=== PATIENT | female | born 1965 | race Two or more races ===

== ENCOUNTER 2024-12-14 16:28 | Inpatient (IN) | payer MEDICAID, OTHER ==
[~2024-12-14] VITALS: Ht 154.9 cm; Wt 96.8 kg
--- NOTE | 2024-12-14 16:51 | ED.PDOC ---
GI ASSESSMENT HPI Comments 59-year-old female with a history of diverticular disease, diabetes, RA, thyroid disease and depression brought in by private car complaining of right lower quadrant abdominal pain for the past 2 days, similar to previous episodes of diverticulitis. Patient also reports fever of 102 at home, associated with nausea and vomiting. She states she had diarrhea 2 days ago, and has been constipated since then. She denies any bloody or black stool, dysuria or sick contacts. Chief Complaint: Abdominal Pain Time Seen by MD: 16:36 Reviewed Notes: Nurses Notes, Medications, Allergies Allergies: Coded Allergies: Acetaminophen (Verified Allergy, Unknown, 12/14/24) Codeine (Verified Allergy, Unknown, 12/14/24) Hydrocodone (Verified Allergy, Unknown, 12/14/24) Information Source: Patient Mode of Arrival: Ambulatory Past Medical History PAST MEDICAL HISTORY: Arthritis (rheumatoid ), Depression, DM, Thyroid Past Medical History (Other): Diverticulitis Surgical History: Cholecystectomy, Hysterectomy (partial ) Surgical History (Other): bilateral ankle anastasiia surgery TOW PICKER History: Denies all TOW PICKER Hx Social History Smoker: Non-Smoker Alcohol: Denies ETOH Use Drugs: Denies Drug Use Lives In: Home All Other Systems: Reviewed and Negative (Comprehensive review of systems are negative unless otherwise stated in HPI) Physical Exam General Appearance: No Apparent Distress, Obese HEENT: Other (Pupils and face symmetric. Moist mucous membranes.) Neck: Full Range of Motion, Normal Inspection Respiratory: Lungs Clear, No Accessory Muscle Use, No Respiratory Distress, Normal Breath Sounds Cardiovascular: No Edema, No JVD, Regular Rate/Rhythm Breast Exam: Deferred Gastrointestinal: RLQ, Soft, Tenderness Genitalia: Deferred Pelvic: Deferred Rectal: Deferred Extremities: Normal inspection, Normal range of motion, Non-tender, No pedal edema Neurologic: Alert (Oriented x4), Normal Affect, Normal Mood, Other (Ambulatory) Cerebellar Function: NOT DONE Reflexes: NOT DONE Skin: Dry, Normal Color, Warm Lymphatic: NOT DONE Was a procedure done? Was a procedure done?: No GI differential Dx Differential Diagnosis: Appendicitis, Diverticular disease, Gastroenteritis, Inflammatory BD, Ischemic Bowel, Ovarian cyst/torsion, UTI, Electrolyte Imbalance, Food Poisoning, Bacterial, Viral, Hypovolemia, Stress Ulcer, Kidney Stone X-Ray, Labs, Meds, VS Vital Signs Date Time Temp Pulse Resp B/P (MAP) Pulse Ox O2 Delivery O2 Flow Rate FiO2 12/14/24 18:47 73 15 111/62 12/14/24 18:24 98.0 101 18 139/74 (95) 95 98.0 12/14/24 18:17 101 18 139/74 12/14/24 16:29 100.1 96 16 120/67 99 100.1 Lab Test 12/14/24 17:35 12/14/24 17:07 Range/Units White Blood Count 12.3 H 4.4-10.8 10^3/uL Red Blood Count 5.00 4.0-5.20 10^6/uL Hemoglobin 16.0 12.2-16.2 g/dL Hematocrit 45.8 36.0-46.0 % Mean Corpuscular Volume 91.6 80.0-100.0 fL Mean Corpuscular Hemoglobin 32.0 28.0-32.0 pg Mean Corpuscular Hemoglobin Concent 35.0 32.0-36.0 g/dL Red Cell Distribution Width 14.1 11.8-14.3 % Platelet Count 201 140-450 10^3/uL Mean Platelet Volume 8.3 6.9-10.8 fL Neutrophils (%) (Auto) 81.2 H 37.0-80.0 % Lymphocytes (%) (Auto) 12.0 10.0-50.0 % Monocytes (%) (Auto) 6.0 0.0-12.0 % Eosinophils (%) (Auto) 0.1 0.0-7.0 % Basophils (%) (Auto) 0.7 0.0-2.0 % Neutrophils # (Auto) 10.0 H 1.6-8.6 10 ^3/uL Lymphocytes # (Auto) 1.5 0.4-5.4 10 ^3/uL Monocytes # (Auto) 0.7 0-1.3 10 ^3/uL Eosinophils # (Auto) 0 0-0.8 10 ^3/uL Basophils # (Auto) 0.1 0-0.2 10 ^3/uL Nucleated Red Blood Cells 0.0 % Sodium Level 138 136-145 mmol/L Potassium Level 3.8 3.5-5.1 mmol/L Chloride Level 103 98-107 mmol/L Carbon Dioxide Level 25 20-31 mmol/L Anion Gap 10 5-15 Blood Urea Nitrogen 9 9-23 mg/dL Creatinine 0.62 0.550-1.02 mg/dL Glomerular Filtration Rate Calc 103 >90 mL/min BUN/Creatinine Ratio 14.5 10.0-20.0 Serum Glucose 133 H 74-106 mg/dL Lactic Acid Level 1.5 0.4-2.0 mmol/L Calcium Level 10.1 8.7-10.4 mg/dL Total Bilirubin 2.1 H 0.2-1.0 mg/dL Aspartate Amino Transferase (AST) 66 H 13-40 U/L Alanine Aminotransferase (ALT) 77 H 7-40 U/L Alkaline Phosphatase 116 46-116 U/L Total Protein 7.7 5.7-8.2 g/dL Albumin 5.1 H 3.2-4.8 g/dL Urine Color Yellow Yellow Urine Clarity Turbid H Clear Urine pH 6.0 5.0-9.0 Urine Specific [place] 1.035 1.001-1.035 Urine Protein 1+ H Negative Urine Ketones Trace Negative Urine Blood 1+ H Negative /uL Urine Nitrite Negative Negative Urine Bilirubin Negative Negative Urine Urobilinogen Normal Negative mg/dL Urine Leukocyte Esterase Negative Negative /uL Urine RBC 4 0 - 4 /hpf Urine Microscopic WBC 2 0-5 /HPF Urine Squamous Epithelial Cells Few <5 /hpf Urine Amorphous Crystals Few None Seen /hpf Urine Bacteria Few H None Seen /hpf Urine Mucus Few None Seen Urine Glucose Normal Normal mg/dL Current Medications Medications (Trade) Dose Ordered Sig/Addison Route Start Time Stop Time Status Last Admin Sodium Chloride 1,000 ml @ 1,000 mls/hr Q1H ONCE IV 12/14/24 17:00 12/14/24 17:59 DC 12/14/24 18:18 Ondansetron HCl (Zofran) 4 mg ONCE ONCE IV 12/14/24 17:00 12/14/24 17:59 DC 12/14/24 18:17 Morphine Sulfate 4 mg ONCE ONCE IV 12/14/24 17:00 12/14/24 18:05 DC 12/14/24 18:17 PROCEDURE(s): ABPL - CT AB PEL WO CON-NO ORAL OR IV REASON: rlq pain ORDER NUMBER(s): [id number], ACCESSION NUMBER(s): [id number] Exam: CT CT AB PEL WO CON-NO ORAL OR IV History: rlq pain Comparison Study: None TECHNIQUE: Multidetector CT of the abdomen was performed from lung bases to p ubic symphysis. Imaging was performed without IV contrast. Axial, coronal and sagittal multiplanar reformats were obtained from the axial data set by the technologist. Radiation Dose Information: CT Dose: CTDI volume is 16.1 mGy. Dose-length product is 856.83 mGy*cm FINDINGS: Evaluation of solid organs is limited due to lack of intravenous contrast use. Findings: Lung Bases: No acute or significant lung base finding. Normal heart size. No pleural or pericardial effusion. Liver: The liver is normal in size. No focal lesions. Gallbladder and Biliary Tree: Unremarkable Spleen: Unremarkable Pancreas: The pancreas is grossly normal in appearance. Adrenal Glands: Unremarkable Kidneys: Kidneys are grossly normal without calculi or hydronephrosis. Bladder: Grossly unremarkable for degree of distention. Bowel: The stomach is grossly normal in appearance. Small bowel and colon are normal in caliber and distribution. The appendix is visualized . Appendix is visualized and measures 6-7 mm with no wall thickening or periappendiceal inflammatory changes. There is no free air or free fluid. Sigmoid diverticulosis with thickened wall and Tawnya sigmoid inflammatory changes. Ascites: Absent Lymphadenopathy: No mesenteric, retroperitoneal or periportal lymphadenopathy. Abdominal Wall and Mesentery: Unremarkable. Vasculature: The visualized abdominal aorta is normal in size and caliber. Evaluation of abdominal and pelvic vessels is limited due to lack of intravenous contrast. Pelvic Organs: Unremarkable Musculoskeletal: No aggressive focal bony lesions, acute fractures or dislocation. Soft tissues: Unremarkable IMPRESSION: 1. Appendix appears normal 2. Sigmoid diverticulitis with no free air or free fluid. Findings may represent non complicated diverticulitis. 3. Radiation optimization: All CT scans at this facility use at least one of these dose optimization techniques: automated exposure control mA and/or kV adjustment per patient size (includes targeted exams where dose is matched to clinical indication) or iterative reconstruction. HS:Y X-Ray, Labs, Meds, VS Comment 59-year-old female with a history of diverticular disease, diabetes, RA, thyroid disease and depression brought in by private car complaining of right lower quadrant abdominal pain for the past 2 days, similar to previous episodes of diverticulitis. Vitals remarkable for temperature of 100.1 Exam remarkable for right lower quadrant tenderness to palpation. No rebound or guarding. Nontender to percussion. Rhythm strip independently interpreted by me: Sinus rhythm, rate 96, no ectopy CT abdomen and pelvis IMPRESSION: 1. Appendix appears normal 2. Sigmoid diverticulitis with no free air or free fluid. Findings may represent non complicated diverticulitis. CBC remarkable for WBC 12.3, comprehensive metabolic panel unremarkable, UA abnormal consistent with a UTI, lactate normal Patient treated with the following in the ED: 1 L 0.9 normal saline IV bolus, Zofran 4 mg IV, morphine 4 mg IV, Zosyn 4.5 g IV On re-evaluation, pain has improved. Vitals were stable. Plan is to admit the patient for IV antibiotics and pain control. Time of 1ST Reevaluation: 17:06 Reevaluation 1ST: Unchanged Patient Education/Counseling: Diagnosis, Treatment, Need For Follow Up Family Education/Counseling: No Family Present SEPSIS Sepsis Screen Date sepsis recognized/suspect: Dec 14, 2024 Time Sepsis recognized/suspect: 1628 Recent Procedure: No On Antibiotic Therapy: No Respiratory Rate >20: No Heart Rate >90: Yes Temp<36 C (96.8 F) or >38.3 C: No SBP <90 or MAP <65 mmHG: No New Acute Mental Status Change: No Is the patient on CPAP, BIPAP,: No SEPSIS EXCLUSION NOTE: Sepsis Exclusion Note: Patient presents with SIRS criteria, but the SIRS response is attributed to [ pain], not sepsis. Sepsis bundle is not initiated at this time, due to this reason. Further management will focus on the treatment of the above condition (s). Physician Orders Ct Ab Pel Wo Con-No Oral Or Iv (12/14/24 16:56) Blood Culture (12/14/24 16:56) Piperacillin-Tazo 4.5gm (Zosyn 4.5gm/100 (12/14/24 19:15) Vital Signs Date Time Temp Pulse Resp B/P (MAP) Pulse Ox O2 Delivery O2 Flow Rate FiO2 12/14/24 18:47 73 15 111/62 12/14/24 18:24 98.0 101 18 139/74 (95) 95 98.0 12/14/24 18:17 101 18 139/74 12/14/24 16:29 100.1 96 16 120/67 99 100.1 Laboratory Tests Test 12/14/24 17:35 Lactic Acid Level 1.5 mmol/L (0.4-2.0) White Blood Count 12.3 10^3/uL (4.4-10.8) H Medications Medications Dose Ordered Sig/Addison Route Start Time Stop Time Status Last Admin Dose Admin Morphine Sulfate 4 mg ONCE ONCE IV 12/14/24 17:00 12/14/24 18:05 DC 12/14/24 18:17 Ondansetron HCl 4 mg ONCE ONCE IV 12/14/24 17:00 12/14/24 17:59 DC 12/14/24 18:17 Sodium Chloride 1,000 ml @ 1,000 mls/hr Q1H ONCE IV 12/14/24 17:00 12/14/24 17:59 DC 12/14/24 18:18 Departure 1 Departure Time of Disposition: 19:00 Impression: Primary Impression: Diverticulitis Additional Impression: UTI (urinary tract infection) Disposition: ADMITTED INPATIENT Admit to: Med Surg Condition: Guarded Critical Care Note Critical Care Time?: No Stability Stability form required: No Heart Score Heart Score: Heart Score Response (Comments) Value History N/A 0 EKG N/A 0 Age N/A 0 Risk Factors N/A 0 Troponin N/A 0 Total 0 I personally scribed for ELENO TENORIO MD ([email or web address]) on 12/14/24 at 17:01. Electronically submitted by Dave Alvarenga ([email or web address]). ELENO TENORIO MD Dec 14, 2024 16:51
[2024-12-14 17:39] LABS: Urine Amorphous Crystal FEW /hpf (None Seen); Urine Protein, UAD 1+ (Negative)
[2024-12-14 17:48] LABS: Hematocrit 45.8 % (36.0-46.0); Hemoglobin 16.0 g/dL (12.2-16.2); Mean Corpuscular Hemoglobin 32.0 pg (28.0-32.0); Mean Corpuscular Volume 91.6 fL (80.0-100.0); Nucleated Red Blood Cells % 0.0 %
[2024-12-14 18:00] LABS: Anion Gap 10 (5-15); BUN/Creatinine Ratio 14.5 (10.0-20.0); Calcium 10.1 mg/dL (8.7-10.4); Carbon Dioxide 25 mmol/L (20-31); Chloride 103 mmol/L (98-107); Potassium 3.8 mmol/L (3.5-5.1); Sodium 138 mmol/L (136-145); Total Protein 7.7 g/dL (5.7-8.2)
--- NOTE | 2024-12-14 18:03 | DVH ---
Exam: CT CT AB PEL WO CON-NO ORAL OR IV History: rlq pain Comparison Study: None TECHNIQUE: Multidetector CT of the abdomen was performed from lung bases to pubic symphysis. Imaging was performed without IV contrast. Axial, coronal and sagittal multiplanar reformats were obtained fr om the axial data set by the technologist. Radiation Dose Information: CT Dose: CTDI volume is 16.1 mGy. Dose-length product is 856.83 mGy*cm FINDINGS: Evaluation of solid organs is limited due to lack of intravenous contrast use. Findings: Lung Bases: No acute or significant lung base finding. Normal heart size. No pleural or pericardial effusion. Liver: The liver is normal in size. No focal lesions. Gallbladder and Biliary Tree: Unremarkable Spleen: Unremarkable Pancreas: The pancreas is grossly normal in appearance. Adrenal Glands: Unremarkable Kidneys: Kidneys are grossly normal without calculi or hydronephrosis. Bladder: Grossly unremarkable for degree of distention. Bowel: The stomach is grossly normal in appearance. Small bowel and colon are normal in caliber and d istribution. The appendix is visualized . Appendix is visualized and measures 6-7 mm with no wall t hickening or periappendiceal inflammatory changes. There is no free air or free fluid. Sigmoid dive rticulosis with thickened wall and Tawnya sigmoid inflammatory changes. Ascites: Absent Lymphadenopathy: No mesenteric, retroperitoneal or periportal lymphadenopathy. Abdominal Wall and Mesentery: Unremarkable. Vasculature: The visualized abdominal aorta is normal in size and caliber. Evaluation of abdominal a nd pelvic vessels is limited due to lack of intravenous contrast. Pelvic Organs: Unremarkable Musculoskeletal: No aggressive focal bony lesions, acute fractures or dislocation. Soft tissues: Unremarkable IMPRESSION: 1. Appendix appears normal 2. Sigmoid diverticulitis with no free air or free fluid. Findings may represent non complicated dive rticulitis. 3. Radiation optimization: All CT scans at this facility use at least one of these dose optimization te chniques: automated exposure control mA and/or kV adjustment per patient size (includes targeted exa ms where dose is matched to clinical indication) or iterative reconstruction. HS:Y
[2024-12-14] MEDS: ONDANSETRON HCL 4 MG/2 ML VIAL IV ONE ×2 (18:17→22:15)
[2024-12-14] MEDS: MORPHINE SULFATE 4 MG/ML SYR/VIAL IV ONE ×2 (18:17→22:15)
[2024-12-14] MEDS: SODIUM CHLORIDE 0.9% 1,000 ML IV ONE ×2 (18:18→23:31)
[2024-12-14 18:30] LABS: Alanine Aminotransferase 77 U/L (7-40); Albumin 5.1 g/dL (3.2-4.8); Alkaline Phosphatase 116 U/L (46-116); Bilirubin, Total 2.1 mg/dL (0.2-1.0); Blood Urea Nitrogen 9 mg/dL (9-23); Glucose 133 mg/dL (74-106)
[2024-12-14] MEDS: PIPERACILLIN-TAZO 4.5GM 100 ML IV ONE (20:08)
[2024-12-14 20:10] VITALS: PULSE 84; RESP 19; O2SAT 96
[2024-12-14 22:45] VITALS: PULSE 96; RESP 15; O2SAT 93
--- NOTE | 2024-12-14 23:03 | DVHHPRES ---
History of Present Illness Resident Creating Document: GENE ORONA RESIDENT History of Present Illness 59-year-old female with history of diverticulitis, diabetes mellitus, rheumatoid arthritis on hydroxychloroquine presents to the ER with bilateral lower quadrant abdominal pain, more on the left side for 2 days. She reports the pain aggravated after eating ramen noodles. She also reports having constipation, not relieved by Colace. She experiences loss of appetite and myalgia as well. She got admitted in the hospital 20 years ago for diverticulitis. She denies an y vomiting or diarrhea, however, she experienced nausea since the episode started. She has never done a colonoscopy. She denies any shortness of breath chest pain, fever, urinary symptoms or any other complaints. Used to take Jardiance for diabetes mellitus, which she stopped due to recurrent UTI use. Currently she is on allogliptin. Past medical history: Diabetes mellitus, rheumatoid arthritis, diverticulitis Past surgical history: Cholecystectomy Allergies: Codeine, opioids causes insomnia and itching Smoke: 3-4 cigarettes per day actively. Eight pack years. Alcohol: Occasionally Leena. Quit vodka. Drugs: Never PCP:Dr. Elizondo Code status full code Review of Systems Gastrointestinal: Nausea, Abdominal Pain, Constipation Allergies: Coded Allergies: Codeine (Verified Allergy, Unknown, 12/14/24) Hydrocodone (Verified Allergy, Unknown, 12/14/24) Exam Vital Signs Vital Signs Date Time Temp Pulse Resp B/P (MAP) Pulse Ox O2 Delivery O2 Flow Rate FiO2 12/14/24 22:15 92 16 128/65 12/14/24 21:10 98.4 94 98.4 12/14/24 20:10 Room Air* 0 21 Exam Pt is lying on bed General Appearance: Alert, Oriented X3, Cooperative, Mild distress HEENT: Atraumatic, Mucous membranes moist/pink Respiratory: Clear to auscultation, Normal air movement, No added sounds Cardiovascular: Regular rate, Normal S1, Normal S2, No murmurs Abdominal/ : Bilateral right and left lower quadrant tenderness present, No signs of peritonitis or perforation, Active bowel sounds, Soft, no distention, no tenderness Extremities: No edema, Normal pulses, No tenderness/swelling Skin: No Significant rash, except past surgical scars Neuro: Normal speech, sensorimotor deficits none Psych/Mental Status: Mental status NL, Mood NL Nurse was there as solar installer technician during examination Labs/Xrays Labs Test 12/14/24 17:35 12/14/24 17:07 Range/Units White Blood Count 12.3 H 4.4-10.8 10^3/uL Red Blood Count 5.00 4.0-5.20 10^6/uL Hemoglobin 16.0 12.2-16.2 g/dL Hematocrit 45.8 36.0-46.0 % Mean Corpuscular Volume 91.6 80.0-100.0 fL Mean Corpuscular Hemoglobin 32.0 28.0-32.0 pg Mean Corpuscular Hemoglobin Concent 35.0 32.0-36.0 g/dL Red Cell Distribution Width 14.1 11.8-14.3 % Platelet Count 201 140-450 10^3/uL Mean Platelet Volume 8.3 6.9-10.8 fL Neutrophils (%) (Auto) 81.2 H 37.0-80.0 % Lymphocytes (%) (Auto) 12.0 10.0-50.0 % Monocytes (%) (Auto) 6.0 0.0-12.0 % Eosinophils (%) (Auto) 0.1 0.0-7.0 % Basophils (%) (Auto) 0.7 0.0-2.0 % Neutrophils # (Auto) 10.0 H 1.6-8.6 10 ^3/uL Lymphocytes # (Auto) 1.5 0.4-5.4 10 ^3/uL Monocytes # (Auto) 0.7 0-1.3 10 ^3/uL Eosinophils # (Auto) 0 0-0.8 10 ^3/uL Basophils # (Auto) 0.1 0-0.2 10 ^3/uL Nucleated Red Blood Cells 0.0 % Sodium Level 138 136-145 mmol/L Potassium Level 3.8 3.5-5.1 mmol/L Chloride Level 103 98-107 mmol/L Carbon Dioxide Level 25 20-31 mmol/L Anion Gap 10 5-15 Blood Urea Nitrogen 9 9-23 mg/dL Creatinine 0.62 0.550-1.02 mg/dL Glomerular Filtration Rate Calc 103 >90 mL/min BUN/Creatinine Ratio 14.5 10.0-20.0 Serum Glucose 133 H 74-106 mg/dL Lactic Acid Level 1.5 0.4-2.0 mmol/L Calcium Level 10.1 8.7-10.4 mg/dL Total Bilirubin 2.1 H 0.2-1.0 mg/dL Aspartate Amino Transferase (AST) 66 H 13-40 U/L Alanine Aminotransferase (ALT) 77 H 7-40 U/L Alkaline Phosphatase 116 46-116 U/L Total Protein 7.7 5.7-8.2 g/dL Albumin 5.1 H 3.2-4.8 g/dL Urine Color Yellow Yellow Urine Clarity Turbid H Clear Urine pH 6.0 5.0-9.0 Urine Specific [place] 1.035 1.001-1.035 Urine Protein 1+ H Negative Urine Ketones Trace Negative Urine Blood 1+ H Negative /uL Urine Nitrite Negative Negative Urine Bilirubin Negative Negative Urine Urobilinogen Normal Negative mg/dL Urine Leukocyte Esterase Negative Negative /uL Urine RBC 4 0 - 4 /hpf Urine Microscopic WBC 2 0-5 /HPF Urine Squamous Epithelial Cells Few <5 /hpf Urine Amorphous Crystals Few None Seen /hpf Urine Bacteria Few H None Seen /hpf Urine Mucus Few None Seen Urine Glucose Normal Normal mg/dL SEPSIS Sepsis Screen Date sepsis recognized/suspect: Dec 14, 2024 Time Sepsis recognized/suspect: 1628 Recent Procedure: No On Antibiotic Therapy: No Respiratory Rate >20: No Heart Rate >90: Yes Temp<36 C (96.8 F) or >38.3 C: No SBP <90 or MAP <65 mmHG: No New Acute Mental Status Change: No Is the patient on CPAP, BIPAP,: No Physician Orders Ct Ab Pel Wo Con-No Oral Or Iv (12/14/24 16:56) Blood Culture (12/14/24 16:56) Vital Signs Date Time Temp Pulse Resp B/P (MAP) Pulse Ox O2 Delivery O2 Flow Rate FiO2 12/14/24 22:15 92 16 128/65 12/14/24 21:10 98.4 92 16 128/65 (86) 94 98.4 12/14/24 20:10 84 19 96 Room Air* 0 21 12/14/24 18:47 73 15 111/62 12/14/24 18:24 98.0 101 18 139/74 (95) 95 98.0 12/14/24 18:17 101 18 139/74 12/14/24 16:29 100.1 96 16 120/67 99 100.1 Laboratory Tests Test 12/14/24 17:35 Lactic Acid Level 1.5 mmol/L (0.4-2.0) White Blood Count 12.3 10^3/uL (4.4-10.8) H Medications Medications Dose Ordered Sig/Addison Route Start Time Stop Time Status Last Admin Dose Admin Morphine Sulfate 4 mg ONCE ONCE IV 12/14/24 17:00 12/14/24 18:05 DC 12/14/24 18:17 4 MG Morphine Sulfate 4 mg ONCE ONCE IV 12/14/24 22:00 12/14/24 22:01 DC 12/14/24 22:15 4 MG Ondansetron HCl 4 mg ONCE ONCE IV 12/14/24 17:00 12/14/24 17:59 DC 12/14/24 18:17 4 MG Ondansetron HCl 4 mg ONCE ONCE IV 12/14/24 22:00 12/14/24 22:01 DC 12/14/24 22:15 4 MG Piperacillin Sod/ Tazobactam Sod 100 ml @ 100 mls/hr ONCE ONCE IV 12/14/24 19:15 12/14/24 20:14 DC 12/14/24 20:08 100 MLS/HR Sodium Chloride 1,000 ml @ 1,000 mls/hr Q1H ONCE IV 12/14/24 17:00 12/14/24 17:59 DC 12/14/24 18:18 1,000 MLS/HR Assessment/Plan Assessment/Plan Severe abdominal pain due to diverticulitis Constipation Hepatic steatosis Transaminitis Status post cholecystectomy CT abdomen and pelvis: Appendix appears normal. Sigmoid diverticulitis with no free air or free fluid. Findings may represent non complicated diverticulitis. -IV fluid -ciprofloxacin -Metronidazole -Acetaminophen for pain control -Avoid nsaids and opioids -Outpatient follow up after 6-8 weeks for colonoscopy, to rule out malignancy. - Increase dietary fiber intake and avoid red meat. -monitor labs for transaminitis. -hepatobiliary ultrasound: CBD no dilated.Hepatomegaly with diffuse hepatic st eatosis.Prior cholecystectomy. No biliary ductal dilatation Urinary tract infection likely due to cystitis: -Urine color turbid, urine protein 1+ urine blood 1+ high urine bacteria few -Ciprofloxacin Rheumatoid arthritis hydroxychloroquine Acetaminophen Diabetes mellitus Glucose 133 Order HbA1c Continue home medications alogliptin 25 mg once daily GI prophylaxis: Pantoprazole DVT prophylaxis: SCDs Diet: NPO, then transition to Clear liquid Goals of care discussed with the patient for more than 27 minutes: Full code status Case discussed with , patient and RN Plan discussed with: Patient, Other Date of Service: Dec 14, 2024 Billing Provider: MARSHA SANCHEZ MD Common Visit Codes: [id number] INP/OBS CARE (HIGH) GENE ORONA Dec 14, 2024 23:03 MARSHA SANCHEZ MD Dec 19, 2024 16:30
[2024-12-14] MEDS: SODIUM CHLORIDE 0.9% 1,000 ML IV SCH (23:19)
[2024-12-14] MEDS: CIPROFLOXACIN 400MG/200ML 200 ML IV SCH (23:34)
[2024-12-15] VITALS (9 sets, daily range): BP systolic 96–138; BP diastolic 54–83; PULSE 54–100; RESP 18–20; TEMP 97.8–98.6; O2SAT 90–100
--- NOTE | 2024-12-15 00:44 | DVH ---
ABDOMINAL ULTRASOUND CLINICAL HISTORY: ELEVATED LFTS TECHNIQUE: Multiple grayscale and color Doppler ultrasound images were obtained of the abdomen. WID: COMPARISON: None FINDINGS: Liver and Biliary System: Increased echogenicity, enlarged measuring 19.5 cm. No focal hepatic obs ervations. No intrahepatic bile duct dilatation. The common duct measures 0. 68 cm at the chanel hep atis. The gallbladder is surgically absent. Pancreas: Visualized portions are unremarkable. Kidneys: The right kidney is 11.6 cm . No hydronephrosis, increased echogenicity, shadowing stone, or focal lesion. IMPRESSION: Hepatomegaly with diffuse hepatic steatosis. Prior cholecystectomy. No biliary ductal dilatation
[2024-12-15] MEDS ORDERED: KETOROLAC TROMETH 30 MG/ML 1ML VIAL IV PRN (02:45)
[2024-12-15] MEDS: KETOROLAC TROMETH 30 MG/ML 1ML VIAL IV ONE (03:34)
[2024-12-15] MEDS: SODIUM CHLOR 0.9% PF (SALINE LOCK) 10ML VIAL/SYR IV SCH (05:38)
[2024-12-15 07:17] LABS: Hematocrit 35.5 % (36.0-46.0); Hemoglobin 12.6 g/dL (12.2-16.2); Mean Corpuscular Hemoglobin 32.6 pg (28.0-32.0); Mean Corpuscular Volume 91.8 fL (80.0-100.0); Nucleated Red Blood Cells % 0.0 %
[2024-12-15 07:37] LABS: Albumin 4.0 g/dL (3.2-4.8); Alkaline Phosphatase 87 U/L (46-116); Anion Gap 9 (5-15); BUN/Creatinine Ratio 11.3 (10.0-20.0); Carbon Dioxide 25 mmol/L (20-31); Chloride 105 mmol/L (98-107); Potassium 3.7 mmol/L (3.5-5.1); Sodium 139 mmol/L (136-145); Total Protein 5.9 g/dL (5.7-8.2)
[2024-12-15 07:40] LABS: Alanine Aminotransferase 60 U/L (7-40); Bilirubin, Total 1.6 mg/dL (0.2-1.0); Blood Urea Nitrogen 6 mg/dL (9-23); Calcium 8.6 mg/dL (8.7-10.4); Glucose 126 mg/dL (74-106)
[2024-12-15] MEDS: PANTOPRAZOLE 40 MG/10 ML VIAL INJ IV SCH (10:13)
--- NOTE | 2024-12-15 11:35 | DVHPN2 ---
Reviewed: Care Plan, H&P, Labs, Medications, Previous Orders, Radiology Changes from previous H/P or p: No Changes Gastrointestinal: Nausea, Abdominal Pain, Constipation Objective Vitals Vital Signs Date Time Temp Pulse Resp B/P (MAP) Pulse Ox O2 Delivery O2 Flow Rate FiO2 12/15/24 09:00 98.4 100 18 138/83 (101) 100 98.4 12/15/24 02:11 Room Air* 0 21 Intake/Output Intake and Output 12/15/24 07:00 Intake Total 300 ml Output Total 0 ml Balance 300 ml Intake Oral 0 ml IV Total 300 ml Output Urine Total 0 ml Medications Current Medications Medications Dose Ordered Sig/Addison Route Start Time Stop Time Status Last Admin Dose Admin Sodium Chloride 10 ml Q8HR IV 12/15/24 06:00 12/15/24 05:38 10 ML Sodium Chloride 1,000 ml @ 60 mls/hr [id number] IV 12/14/24 23:15 12/14/24 23:19 60 MLS/HR Ondansetron HCl 4 mg Q4HP PRN IV 12/14/24 23:15 Ciprofloxacin 200 ml @ 200 mls/hr Q12HR IV 12/14/24 23:30 12/15/24 10:12 200 MLS/HR Metronidazole 100 ml @ 100 mls/hr Q8HR IV 12/15/24 06:00 12/15/24 05:37 100 MLS/HR Acetaminophen 650 mg Q6HP PRN PO 12/15/24 02:45 Hold Pantoprazole Sodium 40 mg DAILY IV 12/15/24 10:00 12/15/24 10:13 40 MG Laboratory Results Laboratory Tests 12/15/24 06:34 Chemistry Test 12/14/24 17:35 12/15/24 06:34 Albumin 5.1 g/dL (3.2-4.8) H 4.0 g/dL (3.2-4.8) Calcium Level 10.1 mg/dL (8.7-10.4) 8.6 mg/dL (8.7-10.4) L Total Protein 7.7 g/dL (5.7-8.2) 5.9 g/dL (5.7-8.2) LFT Test 12/14/24 17:35 12/15/24 06:34 Alanine Aminotransferase (ALT) 77 U/L (7-40) H 60 U/L (7-40) H Alkaline Phosphatase 116 U/L (46-116) 87 U/L (46-116) Aspartate Amino Transferase (AST) 66 U/L (13-40) H 37 U/L (13-40) Total Bilirubin 2.1 mg/dL (0.2-1.0) H 1.6 mg/dL (0.2-1.0) H HgA1c, TSH Test 12/15/24 06:34 Hemoglobin A1c 6.8 % A1C (<5.7) H Urinalysis Test 12/14/24 17:07 Urine Color Yellow (Yellow) Urine Clarity Turbid (Clear) H Urine pH 6.0 (5.0-9.0) Urine Specific [place] 1.035 (1.001-1.035) Urine Protein 1+ (Negative) H Urine Ketones Trace (Negative) Urine Blood 1+ /uL (Negative) H Urine Nitrite Negative (Negative) Urine Bilirubin Negative (Negative) Urine Urobilinogen Normal mg/dL (Negative) Urine Leukocyte Esterase Negative /uL (Negative) Urine RBC 4 /hpf (0 - 4) Urine Microscopic WBC 2 /HPF (0-5) Urine Squamous Epithelial Cells Few /hpf (<5) Urine Amorphous Crystals Few /hpf (None Seen) Urine Bacteria Few /hpf (None Seen) H Urine Mucus Few (None Seen) Urine Glucose Normal mg/dL (Normal) Labs and/or images reviewed: Labs reviewed by me, Image(s) reviewed by me Assessment/Plan Assessment/Plan Acute diverticulitis: Cipro Flagyl, GI consult by Dr. Rajat Sheriff Acute abdominal pain Acute dehydration: IV fluids Constipation Hepatic steatosis Transaminitis History of cholecystectomy Time spent 45 minutes Plan discussed with: Patient Date of Service: Dec 15, 2024 Billing Provider: SUNITA CROSS MD Common Visit Codes: [id number] INP/OBS CARE(HIGH) SUNITA CROSS MD Dec 15, 2024 11:35
[2024-12-15] MEDS: SODIUM CHLORIDE 0.9% 1,000 ML IV SCH (16:00)
[2024-12-16] VITALS (9 sets, daily range): BP systolic 96–116; BP diastolic 51–65; PULSE 69–76; RESP 16–20; TEMP 90.1–98.3; O2SAT 93–99
--- NOTE | 2024-12-16 10:39 | DVHPN2 ---
Reviewed: Care Plan, H&P, Labs, Medications, Previous Orders, Radiology Changes from previous H/P or p: No Changes Gastrointestinal: Nausea, Abdominal Pain, Constipation Objective Vitals Vital Signs Date Time Temp Pulse Resp B/P (MAP) Pulse Ox O2 Delivery O2 Flow Rate FiO2 12/16/24 09:00 97.8 71 18 96/61 (73) 97 97.8 12/16/24 08:00 Room Air* 0 21 Intake/Output Intake and Output 12/16/24 07:00 Intake Total 1450 ml Balance 1450 ml Intake Oral 0 ml IV Total 1450 ml # Voids 5 Medications Current Medications Medications Dose Ordered Sig/Addison Route Start Time Stop Time Status Last Admin Dose Admin Sodium Chloride 10 ml Q8HR IV 12/15/24 06:00 12/16/24 05:41 10 ML Ondansetron HCl 4 mg Q4HP PRN IV 12/14/24 23:15 Ciprofloxacin 200 ml @ 200 mls/hr Q12HR IV 12/14/24 23:30 12/16/24 09:15 200 MLS/HR Metronidazole 100 ml @ 100 mls/hr Q8HR IV 12/15/24 06:00 12/16/24 05:37 100 MLS/HR Acetaminophen 650 mg Q6HP PRN PO 12/15/24 02:45 Hold Pantoprazole Sodium 40 mg DAILY IV 12/15/24 10:00 12/16/24 09:15 40 MG Sodium Chloride 1,000 ml @ 150 mls/hr Q6H40M IV 12/15/24 13:45 12/16/24 09:16 150 MLS/HR Tramadol HCl 50 mg Q6HP PRN PO 12/15/24 16:00 12/16/24 05:39 50 MG Laboratory Results Laboratory Tests 12/15/24 06:34 Urinalysis Test 12/14/24 17:07 Urine Color Yellow (Yellow) Urine Clarity Turbid (Clear) H Urine pH 6.0 (5.0-9.0) Urine Specific [place] 1.035 (1.001-1.035) Urine Protein 1+ (Negative) H Urine Ketones Trace (Negative) Urine Blood 1+ /uL (Negative) H Urine Nitrite Negative (Negative) Urine Bilirubin Negative (Negative) Urine Urobilinogen Normal mg/dL (Negative) Urine Leukocyte Esterase Negative /uL (Negative) Urine RBC 4 /hpf (0 - 4) Urine Microscopic WBC 2 /HPF (0-5) Urine Squamous Epithelial Cells Few /hpf (<5) Urine Amorphous Crystals Few /hpf (None Seen) Urine Bacteria Few /hpf (None Seen) H Urine Mucus Few (None Seen) Urine Glucose Normal mg/dL (Normal) Microbiology Microbiology Date/Time Source Procedure Growth Status 12/14/24 17:35 Blood Blood Culture - Preliminary NO GROWTH AFTER 24 HOURS OF INCUBATION. Resulted Labs and/or images reviewed: Labs reviewed by me, Image(s) reviewed by me Assessment/Plan Assessment/Plan Acute diverticulitis: Cipro Flagyl, GI consult by Dr. Rajat Sheriff Acute abdominal pain Acute dehydration: IV fluids Constipation Hepatic steatosis Transaminitis History of cholecystectomy Time spent 45 minutes Plan discussed with: Patient My Orders Orders - SUNITA CROSS MD Procedure Category Date Status Time * Gi Dvh Shipping Support Clerk CONS 12/15/24 Transmitted 11:31 Sodium Chloride 0.9% PHA 12/15/24 In Process 13:45 Tramadol Hcl (Ultram) PHA 12/15/24 In Process 16:00 Date of Service: Dec 16, 2024 Billing Provider: SUNITA CROSS MD Common Visit Codes: [id number] INP/OBS CARE(HIGH) SUNITA CROSS MD Dec 16, 2024 10:39
--- NOTE | 2024-12-16 14:47 | DVHINCON2 ---
Date of service: Dec 16, [address] Bria Lincoln Reason for Consultation Diverticulitis History of Present Illness 59-year-old female with history of diverticulitis, diabetes mellitus, rheumatoid arthritis on hydroxychloroquine presents to the ER with bilateral lower quadrant abdominal pain, more on the left side for 2 days. She reports the pain aggravated after eating ramen noodles. She also reports having constipation, not relieved by Colace. She experiences loss of appetite and myalgia as well. She got admitted in the hospital 20 years ago for diverticulitis. She denies any vomiting or diarrhea, however, she experienced nausea since the episode started. She has never done a colonoscopy. Used to take Jardiance for diabetes mellitus, which she stopped due to recurrent UTI use. Currently she is on allogliptin. Past Medical History Past medical history: Diabetes mellitus, rheumatoid arthritis, diverticulitis Past Surgical History Past surgical history: Cholecystectomy Social History Smoke: 3-4 cigarettes per day actively. Eight pack years. Alcohol: Occasionally Leena. Quit vodka. Drugs: Never Allergies: Coded Allergies: Codeine (Verified Allergy, Unknown, 12/14/24) Hydrocodone (Verified Allergy, Unknown, 12/14/24) Allergies Allergies: Codeine, opioids causes insomnia and itching Current Medications Current Medications Medications (Trade) Dose Ordered Sig/Addison Route PRN Reason Start Time Stop Time Status Last Admin Tramadol HCl (Ultram) 50 mg Q6HP PRN PO MODERATE PAIN (4-6 PAIN SCALE) 12/15/24 16:00 12/16/24 05:39 Vital Signs Vital Signs Date Time Temp Pulse Resp B/P (MAP) Pulse Ox O2 Delivery O2 Flow Rate FiO2 12/16/24 09:00 97.8 71 18 96/61 (73) 97 97.8 12/16/24 08:00 Room Air* 0 21 Physical Exam General Appearance: Alert, Oriented X3, Cooperative, No distress HEENT: Atraumatic, Mucous membranes moist/pink Respiratory: Clear to auscultation, Normal air movement, No added sounds Cardiovascular: Regular rate, Normal S1, Normal S2, No murmurs Abdominal/ : Bilateral right and left lower quadrant tenderness present, Active bowel sounds, Soft, no distention, no tenderness Extremities: No edema, Normal pulses, No tenderness/swelling Skin: No Significant rash, except past surgical scars Neuro: Normal speech, sensorimotor deficits none Psych/Mental Status: Mental status NL, Mood NL Labs/Diagnostic Data Labs Test 12/16/24 04:30 12/15/24 06:34 12/14/24 17:35 12/14/24 17:07 Range/Units POC Glucose 99 70-106 mg/dl White Blood Count 10.4 4.4-10.8 10^3/uL Red Blood Count 3.86 L 4.0-5.20 10^6/uL Hemoglobin 12.6 # 12.2-16.2 g/dL Hematocrit 35.5 #L 36.0-46.0 % Mean Corpuscular Volume 91.8 80.0-100.0 fL Mean Corpuscular Hemoglobin 32.6 H 28.0-32.0 pg Mean Corpuscular Hemoglobin Concent 35.5 32.0-36.0 g/dL Red Cell Distribution Width 13.9 11.8-14.3 % Platelet Count 175 140-450 10^3/uL Mean Platelet Volume 8.3 6.9-10.8 fL Neutrophils (%) (Auto) 75.9 37.0-80.0 % Lymphocytes (%) (Auto) 15.4 10.0-50.0 % Monocytes (%) (Auto) 7.7 0.0-12.0 % Eosinophils (%) (Auto) 0.7 0.0-7.0 % Basophils (%) (Auto) 0.3 0.0-2.0 % Neutrophils # (Auto) 7.9 1.6-8.6 10 ^3/uL Lymphocytes # (Auto) 1.6 0.4-5.4 10 ^3/uL Monocytes # (Auto) 0.8 0-1.3 10 ^3/uL Eosinophils # (Auto) 0.1 0-0.8 10 ^3/uL Basophils # (Auto) 0 0-0.2 10 ^3/uL Nucleated Red Blood Cells 0.0 % Sodium Level 139 136-145 mmol/L Potassium Level 3.7 3.5-5.1 mmol/L Chloride Level 105 98-107 mmol/L Carbon Dioxide Level 25 20-31 mmol/L Anion Gap 9 5-15 Blood Urea Nitrogen 6 L 9-23 mg/dL Creatinine 0.53 L 0.550-1.02 mg/dL Glomerular Filtration Rate Calc 107 >90 mL/min BUN/Creatinine Ratio 11.3 10.0-20.0 Serum Glucose 126 H 74-106 mg/dL Hemoglobin A1c 6.8 H <5.7 % A1C Calcium Level 8.6 L 8.7-10.4 mg/dL Total Bilirubin 1.6 H 0.2-1.0 mg/dL Aspartate Amino Transferase (AST) 37 13-40 U/L Alanine Aminotransferase (ALT) 60 H 7-40 U/L Alkaline Phosphatase 87 46-116 U/L Total Protein 5.9 5.7-8.2 g/dL Albumin 4.0 3.2-4.8 g/dL Lactic Acid Level 1.5 0.4-2.0 mmol/L Urine Color Yellow Yellow Urine Clarity Turbid H Clear Urine pH 6.0 5.0-9.0 Urine Specific [place] 1.035 1.001-1.035 Urine Protein 1+ H Negative Urine Ketones Trace Negative Urine Blood 1+ H Negative /uL Urine Nitrite Negative Negative Urine Bilirubin Negative Negative Urine Urobilinogen Normal Negative mg/dL Urine Leukocyte Esterase Negative Negative /uL Urine RBC 4 0 - 4 /hpf Urine Microscopic WBC 2 0-5 /HPF Urine Squamous Epithelial Cells Few <5 /hpf Urine Amorphous Crystals Few None Seen /hpf Urine Bacteria Few H None Seen /hpf Urine Mucus Few None Seen Urine Glucose Normal Normal mg/dL Microbiology Date/Time Source Procedure Growth Status 12/14/24 17:35 Blood Blood Culture - Preliminary NO GROWTH AFTER 24 HOURS OF INCUBATION. Resulted Liver USG IMPRESSION: Hepatomegaly with diffuse hepatic steatosis. Prior cholecystectomy. No biliary ductal dilatation CT SCAN ABD PELVIS Sigmoid diverticulosis with thickened wall and Tawnya sigmoid inflammatory changes. Ascites: Absent Problems(with codes): (1) Lower abdominal pain (2) UTI (urinary tract infection) (3) Diverticulitis Plan/Recommendation Plan Continue supportive care IV fluid hydration IV antibiotics Start with ice chips and water If she tolerates that we will put her on a clear liquid diet Stool softeners, increase fluid and fiber intake Check CEA level Outpatient elective colonoscopy has been advised once acute illness subsides Plan discussed with: Patient CHACHO FALLON MD Dec 16, 2024 14:47
[2024-12-16] MEDS: DOCUSATE SOD 100 MG CAP PO SCH (21:56)
[2024-12-16] MEDS: CIPROFLOXACIN 400MG/200ML 200 ML IV SCH (23:36)
[2024-12-17] VITALS (7 sets, daily range): BP systolic 103–143; BP diastolic 52–79; PULSE 58–72; RESP 17–20; TEMP 97.6–98.5; O2SAT 92–98
[2024-12-17] MEDS ORDERED: LEVO150T10 PO (02:51)
--- NOTE | 2024-12-17 03:22 | DVH ---
RIGHT Upper Extremity Venous Duplex Clinical History: R/O RUE DVT Comparison: None Technique: Duplex Doppler evaluation of the venous system of the RIGHT lower neck and upper extremity including color Doppler and spectral/pulsed waveform analysis was performed. Findings: The internal jugular vein demonstrates appropriate compressibility and waveform variability. The subclavian vein is patent on color Doppler evaluation without intraluminal thrombus and demonstra rolf waveform variability. The visualized portion of the brachiocephalic vein is patent on color Doppler evaluation without intr aluminal thrombus and demonstrates waveform variability. The axillary vein demonstrates appropriate compressibility and waveform variability. Partial occlusion of the right brachial vein which appears to be noncompressible. The basilic vein demonstrates appropriate compressibility and patency on Doppler evaluation. The cephalic vein demonstrates appropriate compressibility and patency on Doppler evaluation. Impression: 1. Noncompressible partially occlusive thrombus within the right brachial vein.
[2024-12-17] MEDS: LEVOTHYROXINE SODIUM 50 MCG TAB PO SCH (05:27)
[2024-12-17] MEDS: APIXABAN 5 MG TAB PO SCH (08:36)
--- NOTE | 2024-12-17 10:20 | DVHPN2 ---
Reviewed: Care Plan, H&P, Labs, Medications, Previous Orders, Radiology Changes from previous H/P or p: No Changes Gastrointestinal: Nausea, Abdominal Pain, Constipation Objective Vitals Vital Signs Date Time Temp Pulse Resp B/P (MAP) Pulse Ox O2 Delivery O2 Flow Rate FiO2 12/17/24 09:00 97.6 58 18 107/62 (77) 98 97.6 12/17/24 08:00 Nasal Cannula* 2 28 Intake/Output Intake and Output 12/17/24 07:00 Intake Total 1100 ml Balance 1100 ml Intake Oral 500 ml IV Total 600 ml # Voids 8 Medications Current Medications Medications Dose Ordered Sig/Addison Route Start Time Stop Time Status Last Admin Dose Admin Sodium Chloride 10 ml Q8HR IV 12/15/24 06:00 12/17/24 05:26 10 ML Ondansetron HCl 4 mg Q4HP PRN IV 12/14/24 23:15 Acetaminophen 650 mg Q6HP PRN PO 12/15/24 02:45 Hold Pantoprazole Sodium 40 mg DAILY IV 12/15/24 10:00 12/17/24 08:35 40 MG Sodium Chloride 1,000 ml @ 150 mls/hr Q6H40M IV 12/15/24 13:45 12/16/24 17:16 150 MLS/HR Tramadol HCl 50 mg Q6HP PRN PO 12/15/24 16:00 12/16/24 23:34 50 MG Docusate Sodium 100 mg BID PO 12/16/24 22:00 12/17/24 08:35 100 MG Ciprofloxacin 200 ml @ 200 mls/hr Q12H IV 12/16/24 23:30 12/16/24 23:36 200 MLS/HR Metronidazole 100 ml @ 100 mls/hr Q8H IV 12/16/24 23:30 12/17/24 08:21 100 MLS/HR Apixaban 5 mg BID PO 12/17/24 10:00 12/17/24 08:36 5 MG Levothyroxine Sodium 150 mcg QAM@0600 PO 12/17/24 06:00 12/17/24 05:27 150 MCG Laboratory Results Laboratory Tests 12/15/24 06:34 Urinalysis Test 12/14/24 17:07 Urine Color Yellow (Yellow) Urine Clarity Turbid (Clear) H Urine pH 6.0 (5.0-9.0) Urine Specific [place] 1.035 (1.001-1.035) Urine Protein 1+ (Negative) H Urine Ketones Trace (Negative) Urine Blood 1+ /uL (Negative) H Urine Nitrite Negative (Negative) Urine Bilirubin Negative (Negative) Urine Urobilinogen Normal mg/dL (Negative) Urine Leukocyte Esterase Negative /uL (Negative) Urine RBC 4 /hpf (0 - 4) Urine Microscopic WBC 2 /HPF (0-5) Urine Squamous Epithelial Cells Few /hpf (<5) Urine Amorphous Crystals Few /hpf (None Seen) Urine Bacteria Few /hpf (None Seen) H Urine Mucus Few (None Seen) Urine Glucose Normal mg/dL (Normal) Microbiology Microbiology Date/Time Source Procedure Growth Status 12/14/24 17:35 Blood Blood Culture - Preliminary NO GROWTH AFTER 48 HOURS OF INCUBATION. Resulted Labs and/or images reviewed: Labs reviewed by me, Image(s) reviewed by me Assessment/Plan Assessment/Plan Acute diverticulitis: Cipro Flagyl, GI consult by Dr. Rajat Sheriff appreciated Acute abdominal pain Acute dehydration: IV fluids Constipation Hepatic steatosis Transaminitis History of cholecystectomy Right brachial vein thrombosis: Eliquis 5 mg p.o. b.i.d. Time spent 45 minutes Plan discussed with: Patient My Orders Orders - SUNITA CROSS MD Procedure Category Date Status Time Carcinoembryonic LAB 12/17/24 Logged Antigen 10:15 Date of Service: Dec 17, 2024 Billing Provider: SUNITA CROSS MD Common Visit Codes: [id number] INP/OBS CARE(HIGH) SUNITA CROSS MD Dec 17, 2024 10:20
[2024-12-17] MEDS: SERTRALINE HCL 50 MG TAB PO ONE (12:30)
[2024-12-17] MEDS: LACTULOSE 20Gm/30ML SOLN PO ONE (12:30)
[2024-12-17] MEDS: ONDANSETRON HCL 4 MG/2 ML VIAL IV PRN (13:52)
--- NOTE | 2024-12-17 14:59 | DVH ---
INDICATION: R/O PE TECHNIQUE: Multidetector CTA of the chest was performed of the chest with 100 cc of intravenous contr ast. PULMONARY ANGIOGRAPHY PROTOCOL was utilized using a bolus-tracking technique centered on the luis n pulmonary artery. Axial, coronal and sagittal multiplanar and MIP reformats were performed. Radiation Dose Information: CT Dose: CTDI volume is 27.99 mGy. Dose-length product is 1051.86 mGy*cm Omnipaque 350: 95 mL The dose indicators for CT are the volume Computed Tomography (CT) Dose Index (CTDIvol) and the Dose Length Product (DLP), and are measured in units of mGy and mGy-cm, respectively. These indicators are not patient dose, but values generated from the CT scanner acquisition factors. The report includes radiation exposure data for exposures received during this examination. Findings: Pulmonary artery: Normal caliber of the pulmonary artery. No large central or large segmental pulmo nary embolism. Lower neck: Normal thyroid. Lungs: No focal consolidation, pulmonary mass. There is a 11-12 mm nodule left lower lung field anter iorly sequence 3 image 67 recommend follow-up according to Fleischner criteria. No filling defects in the pulmonary arteries to suggest pulmonary emboli. Pulmonary arteries of the upper limits of normal measuring 3.9 cm correlate for possible pulmonary artery hypertension. Pendant atelectasis posterior ly in both lung draper Heart/Vascular Structures: Normal heart size. Normal caliber and enhancement of the aorta. Lymph Nodes: No adenopathy Pleura: No pleural effusion or significant pneumothorax. Musculoskeletal: No acute osseous abnormality. Upper abdomen: Limited portions of the upper abdomen are unremarkable. IMPRESSION: 1. No pulmonary embolism. Pulmonary arteries of the upper limits of normal (3.9 cm) correlate for pos sible pulmonary artery hypertension. 2. 11-12 mm nodule left lower lung field anteriorly sequence 3 image 67 recommend follow-up according to Fleischner criteria. Fleischner Society pulmonary nodule recommendations (2017): Single solid nodule <6 mm Low-risk patients: no routine follow-up required High-risk patients: optional CT at 12 months (particularly with suspicious nodule morphology and/or upper lobe location) Solitary solid nodule 6-8 mm Low-risk patients: CT at 6-12 months, then consider CT at 18-24 months High-risk patients: CT at 6-12 months, then CT at 18-24 months Solitary solid nodule >8 mm (>250 mm3) Low-risk and high-risk patients: consider CT at 3 months, PET/CT, or tissue sampling Multiple solid nodules <6 mm Low-risk patients: no routine follow-up required High-risk patients: optional CT at 12 months Multiple solid nodules >6 mm Low-risk patients: CT at 3-6 months, then consider CT at 18-24 months High-risk patients: CT at 3-6 months, then CT at 18-24 months When multiple nodules are present, the most suspicious nodule should guide further individualized management. Solitary groundglass opacities < 6 mm require no follow-up Multiple groundglass opacities < 6 mm: CT 3-6 months. If stable consider CT at 2 , and 4 years Groundglass opacities >6 mm: follow-up in 6-12 months and then every 2 years for 5 years. Groundglass opacities greater than 6 mm with part solid component follow-up CT in 3-6 months to confirm persistence. If unchanged and solid component remains less than [address] for 5 years Multiple groundglass opacities greater than 6 mm: CT at 3-6 months. Subsequent management based on the most suspicious nodules. These recommendations do not necessarily apply to women, patients with immunosuppression or a prior history of cancer, patients with multiple nodules that are suspicious for metastasis or infection, or patients with mediastinal lymphadenopathy or pleural effusion in whom cancer is strongly suspected.
[2024-12-17] MEDS: FLEET ENEMA(ADULT) 135 ML PR ONE (15:08)
[2024-12-17] MEDS: POLYETHYLENE GLYCOL 17 GM PWDR PO ONE (15:08)
[2024-12-17] MEDS: ALPRAZolam 0.5 MG TAB PO ONE (15:08)
[2024-12-17] MEDS: ALPRAZolam 0.5 MG TAB PO SCH (20:00)
--- NOTE | 2024-12-17 21:03 | DVHPN2 ---
Progress Note - Dictate Date Seen: Dec 17, 2024 Medical Necessity Reason Pt with a Central, PICC or Fol: No Subjective Patient had enema and miralax, patient reported having large bowel movement in the bathroom. No new complaints, abdominal pain is improving Diagnosed with a extremity partially occlusive venous thrombosis started on Eliquis vital signs Vital Sign Date Time Temp Pulse Resp B/P (MAP) Pulse Ox O2 Delivery O2 Flow Rate FiO2 12/17/24 13:00 98.0 61 18 143/60 (87) 97 98.0 12/17/24 08:00 Nasal Cannula* 2 28 Total Intake and Output 12/16/24 12/16/24 12/17/24 15:00 23:00 07:00 Intake Total 200 ml 300 ml 600 ml Balance 200 ml 300 ml 600 ml medications Current Medications Medications Dose Ordered Sig/Addison Route Start Time Stop Time Status Last Admin Dose Admin Sodium Chloride 10 ml Q8HR IV 12/15/24 06:00 12/17/24 14:50 10 ML Ondansetron HCl 4 mg Q4HP PRN IV 12/14/24 23:15 12/17/24 13:52 4 MG Acetaminophen 650 mg Q6HP PRN PO 12/15/24 02:45 Hold Pantoprazole Sodium 40 mg DAILY IV 12/15/24 10:00 12/17/24 08:35 40 MG Sodium Chloride 1,000 ml @ 150 mls/hr Q6H40M IV 12/15/24 13:45 12/17/24 13:00 150 MLS/HR Tramadol HCl 50 mg Q6HP PRN PO 12/15/24 16:00 12/16/24 23:34 50 MG Docusate Sodium 100 mg BID PO 12/16/24 22:00 12/17/24 08:35 100 MG Ciprofloxacin 200 ml @ 200 mls/hr Q12H IV 12/16/24 23:30 12/17/24 11:58 200 MLS/HR Metronidazole 100 ml @ 100 mls/hr Q8H IV 12/16/24 23:30 12/17/24 14:50 100 MLS/HR Apixaban 5 mg BID PO 12/17/24 10:00 12/17/24 08:36 5 MG Levothyroxine Sodium 150 mcg QAM@0600 PO 12/17/24 06:00 12/17/24 05:27 150 MCG Sertraline HCl 25 mg DAILY PO 12/18/24 10:00 Alprazolam 1 mg TID PO 12/17/24 20:00 objective General Appearance: Alert, Oriented X3, Cooperative, No distress HEENT: Atraumatic, Mucous membranes moist/pink Respiratory: Clear to auscultation, Normal air movement, No added sounds Cardiovascular: Regular rate, Normal S1, Normal S2, No murmurs Abdominal/ : Bilateral right and left lower quadrant tenderness present, Active bowel sounds, Soft, no distention, no tenderness Extremities: No edema, Normal pulses, No tenderness/swelling Skin: No Significant rash, except past surgical scars Neuro: Normal speech, sensorimotor deficits none Psych/Mental Status: Mental status NL, Mood NL laboratory and microbiology Laboratory Tests 12/15/24 06:34 Test 12/15/24 06:34 Range/Units Serum Glucose 126 H 74-106 mg/dL Extremity venous study Impression: 1. Noncompressible partially occlusive thrombus within the right brachial vein. VQ SCAN IMPRESSION: 1. No pulmonary embolism. Pulmonary arteries of the upper limits of normal (3.9 cm) correlate for possible pulmonary artery hypertension. 2. 11-12 mm nodule left lower lung field anteriorly sequence 3 image 67 recommend follow-up according to Fleischner criteria. Problems(with codes): (1) Lower abdominal pain (2) UTI (urinary tract infection) (3) Diverticulitis Prognosis Plan Continue IV antibiotics Patient is on stool softeners Advance her to full liquid diet Discharge planning as per hospitalist on oral antibiotics when patient is stable Outpatient follow up with GI Services for elective colonoscopy Plan discussed with: Patient CHACHO FALLON MD Dec 17, 2024 21:03
[2024-12-17] MEDS: ACETAMINOPHEN 325 MG TAB PO PRN (23:07)
[2024-12-18] VITALS (7 sets, daily range): BP systolic 102–138; BP diastolic 61–77; PULSE 57–68; RESP 17–20; TEMP 97.6–98.3; O2SAT 94–97
--- NOTE | 2024-12-18 09:30 | DVHINCON2 ---
EMILIA BROOKE [facility] 12/18/24 0930: Date Seen: Dec 18, 2024 Referring Physician MD Salazar Reason for Consultation RUE DVT History of Present Illness This is a 59-year-old female who presented to the emergency room with a chief complaint of right lower quadrant abdominal pain for two days. The patient presented with abdominal pain associated with pyrexia, nausea, vomiting, and constipation. During admission she was incidentally found with a noncompressible partial occlusive thrombus within the right brachial vein. Denies a previous history of DVTs. The patient is unable to remember if she had an IV placed in the right upper extremity. CT angio chest with contrast has ruled out a PE. Significant medical history includes [id number] diabetes mellitus, thyroid disease, rheumatoid arthritis on hydroxychloroquine, diverticulitis, tobacco use, and morbid obesity. Past Medical History Past medical history reviewed. No other significant than mentioned above. Past Surgical History Cholecystectomy Family History Family history reviewed. Social History Smokes approximately four cigarettes per day, eight pack-years. Admits to occasional alcohol use. Denies any use of illicit drugs. Allergies: Coded Allergies: Codeine (Verified Allergy, Unknown, 12/14/24) Hydrocodone (Verified Allergy, Unknown, 12/14/24) Home Meds Reported Medications Levothyroxine Sodium (Levothyroxine Sodium) 150 Mcg Tab, 150 MCG PO QAM for 30 Days 12/17/24 Home Meds Home medications reviewed. Current Medications Current Medications Medications (Trade) Dose Ordered Sig/Addison Route PRN Reason Start Time Stop Time Status Last Admin Apixaban (Eliquis) 5 mg BID PO 12/17/24 10:00 12/17/24 22:43 Sertraline HCl (Zoloft) 25 mg DAILY PO 12/18/24 10:00 Alprazolam (Xanax Tablet) 1 mg TID PO 12/17/24 20:00 12/18/24 06:28 Review of Systems Constitutional: No symptom reported Ears, Nose, & Throat: No symptom reported Eyes: No symptom reported Neurological: No symptoms reported Pulmonary/Respiratory: No symptom reported Cardiovascular: No symptom reported Gastrointestinal: Abdominal pain, constipation, N/V Genitourinary: No symptom reported Musculoskeletal: No symptom reported Skin: No symptom reported Psychiatric: No symptom reported Endocrine: No symptom reported Hemotologic/Lymphatic: No symptom reported Vital Signs Vital Signs Date Time Temp Pulse Resp B/P (MAP) Pulse Ox O2 Delivery O2 Flow Rate FiO2 12/18/24 09:19 97.8 65 20 102/61 (75) 96 97.8 12/17/24 20:00 Nasal Cannula* 2 28 Physical Exam General Appearance: Cooperative. Well developed. Morbidly obese. In no acute distress Head Exam: Normal inspection Neck Exam: Normal inspection. Non-tender. Normal alignment Pulmonary/Respiratory: Chest non-tender. Clear bilateral breath sounds Cardiovascular/Chest: Regular rate and rhythm. S1, S2. Sinus rhythm. No murmurs. No JVD. Peripheral Pulses: 2+ Radial (R). 2+ Radial (L). 2+ Pedal (R). 2+ Pedal (L) Abdominal Exam: Normal bowel sounds. Soft Ankle Exam: Negative ankle edema Lower extremities: Negative lower extremity edema Neuro/Mental Status: A&O x4. Coherent Thoughts/Psych: Normal thought pattern. Appropriate mood and affect. Good judgement and insight Appearance: In no acute distress Skin Exam: Normal inspection. Normal color. Warm. Dry Labs/Diagnostic Data Labs Test 12/17/24 11:48 12/16/24 04:30 12/15/24 06:34 12/14/24 17:35 Range/Units Carcinoembryonic Antigen 1.33 <=5.0 ng/mL POC Glucose 99 70-106 mg/dl White Blood Count 10.4 4.4-10.8 10^3/uL Red Blood Count 3.86 L 4.0-5.20 10^6/uL Hemoglobin 12.6 # 12.2-16.2 g/dL Hematocrit 35.5 #L 36.0-46.0 % Mean Corpuscular Volume 91.8 80.0-100.0 fL Mean Corpuscular Hemoglobin 32.6 H 28.0-32.0 pg Mean Corpuscular Hemoglobin Concent 35.5 32.0-36.0 g/dL Red Cell Distribution Width 13.9 11.8-14.3 % Platelet Count 175 140-450 10^3/uL Mean Platelet Volume 8.3 6.9-10.8 fL Neutrophils (%) (Auto) 75.9 37.0-80.0 % Lymphocytes (%) (Auto) 15.4 10.0-50.0 % Monocytes (%) (Auto) 7.7 0.0-12.0 % Eosinophils (%) (Auto) 0.7 0.0-7.0 % Basophils (%) (Auto) 0.3 0.0-2.0 % Neutrophils # (Auto) 7.9 1.6-8.6 10 ^3/uL Lymphocytes # (Auto) 1.6 0.4-5.4 10 ^3/uL Monocytes # (Auto) 0.8 0-1.3 10 ^3/uL Eosinophils # (Auto) 0.1 0-0.8 10 ^3/uL Basophils # (Auto) 0 0-0.2 10 ^3/uL Nucleated Red Blood Cells 0.0 % Sodium Level 139 136-145 mmol/L Potassium Level 3.7 3.5-5.1 mmol/L Chloride Level 105 98-107 mmol/L Carbon Dioxide Level 25 20-31 mmol/L Anion Gap 9 5-15 Blood Urea Nitrogen 6 L 9-23 mg/dL Creatinine 0.53 L 0.550-1.02 mg/dL Glomerular Filtration Rate Calc 107 >90 mL/min BUN/Creatinine Ratio 11.3 10.0-20.0 Serum Glucose 126 H 74-106 mg/dL Hemoglobin A1c 6.8 H <5.7 % A1C Calcium Level 8.6 L 8.7-10.4 mg/dL Total Bilirubin 1.6 H 0.2-1.0 mg/dL Aspartate Amino Transferase (AST) 37 13-40 U/L Alanine Aminotransferase (ALT) 60 H 7-40 U/L Alkaline Phosphatase 87 46-116 U/L Total Protein 5.9 5.7-8.2 g/dL Albumin 4.0 3.2-4.8 g/dL Lactic Acid Level 1.5 0.4-2.0 mmol/L Test 12/14/24 17:07 Range/Units Urine Color Yellow Yellow Urine Clarity Turbid H Clear Urine pH 6.0 5.0-9.0 Urine Specific [place] 1.035 1.001-1.035 Urine Protein 1+ H Negative Urine Ketones Trace Negative Urine Blood 1+ H Negative /uL Urine Nitrite Negative Negative Urine Bilirubin Negative Negative Urine Urobilinogen Normal Negative mg/dL Urine Leukocyte Esterase Negative Negative /uL Urine RBC 4 0 - 4 /hpf Urine Microscopic WBC 2 0-5 /HPF Urine Squamous Epithelial Cells Few <5 /hpf Urine Amorphous Crystals Few None Seen /hpf Urine Bacteria Few H None Seen /hpf Urine Mucus Few None Seen Urine Glucose Normal Normal mg/dL Microbiology Date/Time Source Procedure Growth Status 12/14/24 17:35 Blood Blood Culture - Preliminary NO GROWTH AFTER 72 HOURS OF INCUBATION. Resulted Assessment Partially occlusive thrombus, RUE PE ruled out [id number] diabetes mellitus Thyroid disease Rheumatoid arthritis Tobacco use Morbid obesity Plan/Recommendation (Dr. King) Initiate Eliquis therapy starting dose at 10 mg BID x 7 days followed by Eliquis therapy 5 mg BID x 3-6 months. The patient could benefit from a repeat right upper extremity venous US in three months. In the setting of persistent thrombus, it would be recommended to transition to warfarin therapy. If recurrent DVTs in the future, the patient can undergo hypercoagulability studies. There is no further cardiac work-up indicated at this time. Kindly call if in need to re-consult. Thank you for allowing us to participate in this patient's care. This medical document was created using an electronic medical record system with voice recognition software and computerized dictation system. Although this document has been carefully reviewed, there might still be some phonetic and typographical errors. Occasional wrong-word or ``sound-alike substitutions may have occurred due to the inherent limitations of voice recognition software. These areas are purely typographical due to imperfections of the software p rograms and do not reflect any compromise in the patient's medical care. Please read the chart carefully and recognize, using context, where these substitutions have occurred. Plan discussed with: Patient, Other NYHA Physical activity limitations: NA Date of Service: Dec 18, 2024 Billing Provider: EMILIA BROOKE Cardiology Common Codes: [id number] INP/OBS CARE (High) ROBERTO KING MD 12/18/24 1621: Allergies: Coded Allergies: Codeine (Verified Allergy, Unknown, 12/14/24) Hydrocodone (Verified Allergy, Unknown, 12/14/24) Home Meds Reported Medications Levothyroxine Sodium (Levothyroxine Sodium) 150 Mcg Tab, 150 MCG PO QAM for 30 Days 12/17/24 Plan/Recommendation UE DVT after IV access cont doac therapy no further recs EMILIA BROOKE Dec 18, 2024 09:30 ROBERTO KING MD Dec 18, 2024 16:21
--- NOTE | 2024-12-18 10:44 | DVHPN2 ---
Reviewed: Care Plan, H&P, Labs, Medications, Previous Orders, Radiology Changes from previous H/P or p: No Changes Gastrointestinal: Nausea, Abdominal Pain, Constipation Objective Vitals Vital Signs Date Time Temp Pulse Resp B/P (MAP) Pulse Ox O2 Delivery O2 Flow Rate FiO2 12/18/24 09:19 97.8 65 20 102/61 (75) 96 97.8 12/17/24 20:00 Nasal Cannula* 2 28 Intake/Output Intake and Output 12/18/24 07:00 Intake Total 2490 ml Balance 2490 ml Intake Oral 800 ml IV Total 1690 ml # Voids 10 # Bowel Movements 2 Medications Current Medications Medications Dose Ordered Sig/Addison Route Start Time Stop Time Status Last Admin Dose Admin Sodium Chloride 10 ml Q8HR IV 12/15/24 06:00 12/18/24 06:29 10 ML Ondansetron HCl 4 mg Q4HP PRN IV 12/14/24 23:15 12/17/24 13:52 4 MG Acetaminophen 650 mg Q6HP PRN PO 12/15/24 02:45 12/17/24 23:07 650 MG Pantoprazole Sodium 40 mg DAILY IV 12/15/24 10:00 12/17/24 08:35 40 MG Sodium Chloride 1,000 ml @ 150 mls/hr Q6H40M IV 12/15/24 13:45 12/18/24 03:18 150 MLS/HR Tramadol HCl 50 mg Q6HP PRN PO 12/15/24 16:00 12/16/24 23:34 50 MG Docusate Sodium 100 mg BID PO 12/16/24 22:00 12/17/24 08:35 100 MG Ciprofloxacin 200 ml @ 200 mls/hr Q12H IV 12/16/24 23:30 12/17/24 23:07 200 MLS/HR Metronidazole 100 ml @ 100 mls/hr Q8H IV 12/16/24 23:30 12/18/24 06:30 100 MLS/HR Levothyroxine Sodium 150 mcg QAM@0600 PO 12/17/24 06:00 12/18/24 06:27 150 MCG Sertraline HCl 25 mg DAILY PO 12/18/24 10:00 Alprazolam 1 mg TID PO 12/17/24 20:00 12/18/24 06:28 1 MG Apixaban 5 mg BID PO 12/26/24 10:00 UNV Apixaban 10 mg BID PO 12/18/24 10:00 12/25/24 09:59 UNV Laboratory Results Laboratory Tests 12/15/24 06:34 Urinalysis Test 12/14/24 17:07 Urine Color Yellow (Yellow) Urine Clarity Turbid (Clear) H Urine pH 6.0 (5.0-9.0) Urine Specific [place] 1.035 (1.001-1.035) Urine Protein 1+ (Negative) H Urine Ketones Trace (Negative) Urine Blood 1+ /uL (Negative) H Urine Nitrite Negative (Negative) Urine Bilirubin Negative (Negative) Urine Urobilinogen Normal mg/dL (Negative) Urine Leukocyte Esterase Negative /uL (Negative) Urine RBC 4 /hpf (0 - 4) Urine Microscopic WBC 2 /HPF (0-5) Urine Squamous Epithelial Cells Few /hpf (<5) Urine Amorphous Crystals Few /hpf (None Seen) Urine Bacteria Few /hpf (None Seen) H Urine Mucus Few (None Seen) Urine Glucose Normal mg/dL (Normal) Microbiology Microbiology Date/Time Source Procedure Growth Status 12/14/24 17:35 Blood Blood Culture - Preliminary NO GROWTH AFTER 72 HOURS OF INCUBATION. Resulted Labs and/or images reviewed: Labs reviewed by me, Image(s) reviewed by me Assessment/Plan Assessment/Plan Acute diverticulitis: Cipro Flagyl, GI consult by Dr. Rajat Sheriff appreciated Acute abdominal pain Acute dehydration: IV fluids Constipation Hepatic steatosis Transaminitis Hypothyroidism Rheumatoid arthritis Morbid obesity Chronic current smoking: Counseling History of cholecystectomy Partially occlusive Right brachial vein thrombosis: Cardiology Consult by appreciated, Eliquis 10 mg p.o. b.i.d. seven days then 5 mg p.o. b.i.d. for three months PE ruled out Time spent 45 minutes DIPESH Calvin at bedside Plan discussed with: Patient My Orders Orders - SUNITA CROSS MD Procedure Category Date Status Time Sertraline Hcl PHA 12/18/24 In Process (Zoloft) 10:[address] 12/17/24 Resulted Contrast 13:54 * Hebrew Teacher CONS 12/17/24 Transmitted Consult Alprazolam Tablet PHA 12/17/24 In Process (Xanax Tablet) 20:00 * Cardiology Consult CONS 12/17/24 Transmitted 13:52 Date of Service: Dec 18, 2024 Billing Provider: SUNITA CROSS MD Common Visit Codes: [id number] INP/OBS CARE(HIGH) SUNITA CROSS MD Dec 18, 2024 10:44
[2024-12-18] MEDS: APIXABAN 5 MG TAB PO SCH (11:57)
[2024-12-18] MEDS: SERTRALINE HCL 50 MG TAB PO SCH (11:57)
--- NOTE | 2024-12-18 15:56 | DVHPN2 ---
Progress Note - Dictate Date Seen: Dec 18, 2024 Medical Necessity Reason Pt with a Central, PICC or Fol: No Subjective 2 Bowel movements recorded Abdominal pain has improved Diagnosed with a extremity partially occlusive venous thrombosis started on Eliquis vital signs Vital Sign Date Time Temp Pulse Resp B/P (MAP) Pulse Ox O2 Delivery O2 Flow Rate FiO2 12/18/24 13:00 97.7 62 20 129/77 (94) 96 97.7 12/18/24 08:00 Room Air* 0 21 Total Intake and Output 12/17/24 12/17/24 12/18/24 15:00 23:00 07:00 Intake Total 300 ml 600 ml 1590 ml Balance 300 ml 600 ml 1590 ml medications Current Medications Medications Dose Ordered Sig/Addison Route Start Time Stop Time Status Last Admin Dose Admin Sodium Chloride 10 ml Q8HR IV 12/15/24 06:00 12/18/24 13:44 10 ML Ondansetron HCl 4 mg Q4HP PRN IV 12/14/24 23:15 12/17/24 13:52 4 MG Acetaminophen 650 mg Q6HP PRN PO 12/15/24 02:45 12/17/24 23:07 650 MG Pantoprazole Sodium 40 mg DAILY IV 12/15/24 10:00 12/18/24 11:56 40 MG Sodium Chloride 1,000 ml @ 150 mls/hr Q6H40M IV 12/15/24 13:45 12/18/24 13:44 150 MLS/HR Tramadol HCl 50 mg Q6HP PRN PO 12/15/24 16:00 12/16/24 23:34 50 MG Docusate Sodium 100 mg BID PO 12/16/24 22:00 12/18/24 11:56 100 MG Ciprofloxacin 200 ml @ 200 mls/hr Q12H IV 12/16/24 23:30 12/18/24 11:56 200 MLS/HR Metronidazole 100 ml @ 100 mls/hr Q8H IV 12/16/24 23:30 12/18/24 06:30 100 MLS/HR Levothyroxine Sodium 150 mcg QAM@0600 PO 12/17/24 06:00 12/18/24 06:27 150 MCG Sertraline HCl 25 mg DAILY PO 12/18/24 10:00 12/18/24 11:57 25 MG Apixaban 5 mg BID PO 12/26/24 10:00 Apixaban 10 mg BID PO 12/18/24 10:00 12/25/24 09:59 12/18/24 11:57 10 MG Alprazolam 1 mg [id number] PRN PO 12/18/24 11:15 objective General Appearance: Alert, Oriented X3, Cooperative, No distress HEENT: Atraumatic, Mucous membranes moist/pink Respiratory: Clear to auscultation, Normal air movement, No added sounds Cardiovascular: Regular rate, Normal S1, Normal S2, No murmurs Abdominal/ : Bilateral right and left lower quadrant tenderness present, Active bowel sounds, Soft, no distention, no tenderness Extremities: No edema, Normal pulses, No tenderness/swelling Skin: No Significant rash, except past surgical scars Neuro: Normal speech, sensorimotor deficits none Psych/Mental Status: Mental status NL, Mood NL laboratory and microbiology Laboratory Tests 12/15/24 06:34 Test 12/15/24 06:34 Range/Units Serum Glucose 126 H 74-106 mg/dL Problems(with codes): (1) Lower abdominal pain (2) UTI (urinary tract infection) (3) Diverticulitis Prognosis Plan Continue IV antibiotics Patient is on stool softeners Advance her to full liquid diet We will need Eliquis for partially occlusive DVT Discharge planning as per hospitalist on oral antibiotics when patient is stable Outpatient follow up with GI Services for elective colonoscopy Plan discussed with: Patient, Other CHACHO FALLON MD Dec 18, 2024 15:56
[2024-12-18] MEDS: ALPRAZolam 0.5 MG TAB PO PRN (22:23)
[2024-12-19] VITALS (7 sets, daily range): BP systolic 117–151; BP diastolic 66–83; PULSE 64–85; RESP 17–20; TEMP 97.3–98.2; O2SAT 94–98
--- NOTE | 2024-12-19 11:14 | DVHPN2 ---
Reviewed: Care Plan, H&P, Labs, Medications, Previous Orders, Radiology Changes from previous H/P or p: No Changes Gastrointestinal: Nausea, Abdominal Pain, Constipation Objective Vitals Vital Signs Date Time Temp Pulse Resp B/P (MAP) Pulse Ox O2 Delivery O2 Flow Rate FiO2 12/19/24 08:30 98.0 64 17 123/66 (85) 94 98.0 12/18/24 20:00 Room Air* 0 21 Intake/Output Intake and Output 12/19/24 07:00 Intake Total 3170 ml Balance 3170 ml Intake Oral 1770 ml IV Total 1400 ml # Voids 8 # Bowel Movements 2 Medications Current Medications Medications Dose Ordered Sig/Addison Route Start Time Stop Time Status Last Admin Dose Admin Sodium Chloride 10 ml Q8HR IV 12/15/24 06:00 12/19/24 06:25 10 ML Ondansetron HCl 4 mg Q4HP PRN IV 12/14/24 23:15 12/17/24 13:52 4 MG Acetaminophen 650 mg Q6HP PRN PO 12/15/24 02:45 12/17/24 23:07 650 MG Pantoprazole Sodium 40 mg DAILY IV 12/15/24 10:00 12/19/24 10:32 40 MG Sodium Chloride 1,000 ml @ 150 mls/hr Q6H40M IV 12/15/24 13:45 12/19/24 06:23 150 MLS/HR Tramadol HCl 50 mg Q6HP PRN PO 12/15/24 16:00 12/16/24 23:34 50 MG Docusate Sodium 100 mg BID PO 12/16/24 22:00 12/18/24 11:56 100 MG Ciprofloxacin 200 ml @ 200 mls/hr Q12H IV 12/16/24 23:30 12/19/24 10:32 200 MLS/HR Metronidazole 100 ml @ 100 mls/hr Q8H IV 12/16/24 23:30 12/19/24 06:25 100 MLS/HR Levothyroxine Sodium 150 mcg QAM@0600 PO 12/17/24 06:00 12/19/24 06:23 150 MCG Sertraline HCl 25 mg DAILY PO 12/18/24 10:00 12/19/24 10:33 25 MG Apixaban 5 mg BID PO 12/26/24 10:00 Apixaban 10 mg BID PO 12/18/24 10:00 12/25/24 09:59 12/19/24 10:33 10 MG Alprazolam 1 mg [id number] PRN PO 12/18/24 11:15 12/18/24 22:23 1 MG Laboratory Results Laboratory Tests 12/15/24 06:34 Urinalysis Test 12/14/24 17:07 Urine Color Yellow (Yellow) Urine Clarity Turbid (Clear) H Urine pH 6.0 (5.0-9.0) Urine Specific [place] 1.035 (1.001-1.035) Urine Protein 1+ (Negative) H Urine Ketones Trace (Negative) Urine Blood 1+ /uL (Negative) H Urine Nitrite Negative (Negative) Urine Bilirubin Negative (Negative) Urine Urobilinogen Normal mg/dL (Negative) Urine Leukocyte Esterase Negative /uL (Negative) Urine RBC 4 /hpf (0 - 4) Urine Microscopic WBC 2 /HPF (0-5) Urine Squamous Epithelial Cells Few /hpf (<5) Urine Amorphous Crystals Few /hpf (None Seen) Urine Bacteria Few /hpf (None Seen) H Urine Mucus Few (None Seen) Urine Glucose Normal mg/dL (Normal) Microbiology Microbiology Date/Time Source Procedure Growth Status 12/14/24 17:35 Blood Blood Culture - Preliminary NO GROWTH AFTER 72 HOURS OF INCUBATION. Resulted Labs and/or images reviewed: Labs reviewed by me, Image(s) reviewed by me Assessment/Plan Assessment/Plan Acute diverticulitis: Cipro Flagyl, GI consult by Dr. Rajat Sheriff appreciated Acute abdominal pain Acute dehydration: IV fluids Constipation Hepatic steatosis Transaminitis Hypothyroidism Rheumatoid arthritis Morbid obesity Chronic current smoking: Counseling History of cholecystectomy Partially occlusive Right brachial vein thrombosis: Cardiology Consult by appreciated, Eliquis 10 mg p.o. b.i.d. seven days then 5 mg p.o. b.i.d. for three months PE ruled out Time spent 45 minutes DIPESH Calvin at bedside Will dc tomorrow. Plan discussed with: Patient My Orders Orders - SUNITA CROSS MD Procedure Category Date Status Time Alprazolam Tablet PHA 12/18/24 In Process (Xanax Tablet) 11:15 Date of Service: Dec 19, 2024 Billing Provider: SUNITA CROSS MD Common Visit Codes: [id number] INP/OBS CARE(HIGH) SUNITA CROSS MD Dec 19, 2024 11:14
--- NOTE | 2024-12-19 17:52 | MEDREC ---
[facility] ASP Intervention Section I [facility] ASP Intervention: IV to PO conversion (Patient tolerating PO may consider transitioning IV antibiotics to PO if/when clinically appropriate.) DAPHNEY PAZ [facility] RESIDENT Dec 19, 2024 17:52
--- NOTE | 2024-12-19 22:30 | DVHPN2 ---
Progress Note - Dictate Date Seen: Dec 19, 2024 Medical Necessity Reason Pt with a Central, PICC or Fol: No Subjective 2 Bowel movements recorded Abdominal pain has improved Diagnosed with a extremity partially occlusive venous thrombosis started on Eliquis vital signs Vital Sign Date Time Temp Pulse Resp B/P (MAP) Pulse Ox O2 Delivery O2 Flow Rate FiO2 12/19/24 16:30 98.0 76 17 127/69 (88) 97 98.0 12/19/24 08:00 Room Air* 0 21 Total Intake and Output 12/18/24 12/18/24 12/19/24 15:00 23:00 07:00 Intake Total 300 ml 920 ml 2150 ml Balance 300 ml 920 ml 2150 ml medications Current Medications Medications Dose Ordered Sig/Addison Route Start Time Stop Time Status Last Admin Dose Admin Sodium Chloride 10 ml Q8HR IV 12/15/24 06:00 12/19/24 21:57 10 ML Ondansetron HCl 4 mg Q4HP PRN IV 12/14/24 23:15 12/17/24 13:52 4 MG Acetaminophen 650 mg Q6HP PRN PO 12/15/24 02:45 12/17/24 23:07 650 MG Pantoprazole Sodium 40 mg DAILY IV 12/15/24 10:00 12/19/24 10:32 40 MG Tramadol HCl 50 mg Q6HP PRN PO 12/15/24 16:00 12/16/24 23:34 50 MG Docusate Sodium 100 mg BID PO 12/16/24 22:00 12/18/24 11:56 100 MG Ciprofloxacin 200 ml @ 200 mls/hr Q12H IV 12/16/24 23:30 12/19/24 10:32 200 MLS/HR Metronidazole 100 ml @ 100 mls/hr Q8H IV 12/16/24 23:30 12/19/24 14:51 100 MLS/HR Levothyroxine Sodium 150 mcg QAM@0600 PO 12/17/24 06:00 12/19/24 06:23 150 MCG Sertraline HCl 25 mg DAILY PO 12/18/24 10:00 12/19/24 10:33 25 MG Apixaban 5 mg BID PO 12/26/24 10:00 Apixaban 10 mg BID PO 12/18/24 10:00 12/25/24 09:59 12/19/24 21:56 10 MG Alprazolam 1 mg [id number] PRN PO 12/18/24 11:15 12/18/24 22:23 1 MG objective General Appearance: Alert, Oriented X3, Cooperative, No distress HEENT: Atraumatic, Mucous membranes moist/pink Respiratory: Clear to auscultation, Normal air movement, No added sounds Cardiovascular: Regular rate, Normal S1, Normal S2, No murmurs Abdominal/ : Bilateral right and left lower quadrant tenderness present, Active bowel sounds, Soft, no distention, no tenderness Extremities: No edema, Normal pulses, No tenderness/swelling Skin: No Significant rash, except past surgical scars Neuro: Normal speech, sensorimotor deficits none Psych/Mental Status: Mental status NL, Mood NL laboratory and microbiology Laboratory Tests 12/15/24 06:34 Test 12/15/24 06:34 Range/Units Serum Glucose 126 H 74-106 mg/dL Problems(with codes): (1) Lower abdominal pain (2) UTI (urinary tract infection) (3) Diverticulitis Prognosis Plan Continue IV antibiotics Patient is on stool softeners Advance her to full liquid diet We will need Eliquis for partially occlusive DVT Discharge planning as per hospitalist on oral antibiotics when patient is stable Outpatient follow up with GI Services for elective colonoscopy Dietary Evaluation Review Comments: CCHO-60 high fiber diet when medically feasible. Wt management upon D/C Expected Outcomes/Goals: controlled DM, improved GI health, gradul wt loss Plan discussed with: Patient, Other (None) CHACHO FALLON MD Dec 19, 2024 22:30
[2024-12-20 05:00] VITALS: BP 169/93; PULSE 73; RESP 22; TEMP 98.5; O2SAT 94
[2024-12-20 09:00] VITALS: BP 130/69; PULSE 70; RESP 17; TEMP 98.4; O2SAT 91
[2024-12-20] MEDS ORDERED: APIX5TAB PO (10:50)
[2024-12-20] MEDS ORDERED: CIPR-173 PO (10:51)
[2024-12-20] MEDS ORDERED: METR-344 PO (10:51)
--- NOTE | 2024-12-20 10:58 | DVHDS2 ---
Discharge Summary Date of Admission Dec 14, 2024 at 23:03 Date of Discharge: Dec 20, 2024 Admitting Diagnosis Left lower quadrant abdominal pain Wounds: None Labs/Diagnostic Data: Laboratory Results Test 12/17/24 11:48 12/16/24 04:30 12/15/24 06:34 12/14/24 17:35 Carcinoembryonic Antigen 1.33 ng/mL (<=5.0) POC Glucose 99 mg/dl (70-106) White Blood Count 10.4 10^3/uL (4.4-10.8) Red Blood Count 3.86 10^6/uL (4.0-5.20) Hemoglobin 12.6 g/dL (12.2-16.2) Hematocrit 35.5 % (36.0-46.0) Mean Corpuscular Volume 91.8 fL (80.0-100.0) Mean Corpuscular Hemoglobin 32.6 pg (28.0-32.0) Mean Corpuscular Hemoglobin Concent 35.5 g/dL (32.0-36.0) Red Cell Distribution Width 13.9 % (11.8-14.3) Platelet Count 175 10^3/uL (140-450) Mean Platelet Volume 8.3 fL (6.9-10.8) Neutrophils (%) (Auto) 75.9 % (37.0-80.0) Lymphocytes (%) (Auto) 15.4 % (10.0-50.0) Monocytes (%) (Auto) 7.7 % (0.0-12.0) Eosinophils (%) (Auto) 0.7 % (0.0-7.0) Basophils (%) (Auto) 0.3 % (0.0-2.0) Neutrophils # (Auto) 7.9 10 ^3/uL (1.6-8.6) Lymphocytes # (Auto) 1.6 10 ^3/uL (0.4-5.4) Monocytes # (Auto) 0.8 10 ^3/uL (0-1.3) Eosinophils # (Auto) 0.1 10 ^3/uL (0-0.8) Basophils # (Auto) 0 10 ^3/uL (0-0.2) Nucleated Red Blood Cells 0.0 % Sodium Level 139 mmol/L (136-145) Potassium Level 3.7 mmol/L (3.5-5.1) Chloride Level 105 mmol/L (98-107) Carbon Dioxide Level 25 mmol/L (20-31) Anion Gap 9 (5-15) Blood Urea Nitrogen 6 mg/dL (9-23) Creatinine 0.53 mg/dL (0.550-1.02) Glomerular Filtration Rate Calc 107 mL/min (>90) BUN/Creatinine Ratio 11.3 (10.0-20.0) Serum Glucose 126 mg/dL (74-106) Hemoglobin A1c 6.8 % A1C (<5.7) Calcium Level 8.6 mg/dL (8.7-10.4) Total Bilirubin 1.6 mg/dL (0.2-1.0) Aspartate Amino Transferase (AST) 37 U/L (13-40) Alanine Aminotransferase (ALT) 60 U/L (7-40) Alkaline Phosphatase 87 U/L (46-116) Total Protein 5.9 g/dL (5.7-8.2) Albumin 4.0 g/dL (3.2-4.8) Lactic Acid Level 1.5 mmol/L (0.4-2.0) Test 12/14/24 17:07 Urine Color Yellow (Yellow) Urine Clarity Turbid (Clear) Urine pH 6.0 (5.0-9.0) Urine Specific [place] 1.035 (1.001-1.035) Urine Protein 1+ (Negative) Urine Ketones Trace (Negative) Urine Blood 1+ /uL (Negative) Urine Nitrite Negative (Negative) Urine Bilirubin Negative (Negative) Urine Urobilinogen Normal mg/dL (Negative) Urine Leukocyte Esterase Negative /uL (Negative) Urine RBC 4 /hpf (0 - 4) Urine Microscopic WBC 2 /HPF (0-5) Urine Squamous Epithelial Cells Few /hpf (<5) Urine Amorphous Crystals Few /hpf (None Seen) Urine Bacteria Few /hpf (None Seen) Urine Mucus Few (None Seen) Urine Glucose Normal mg/dL (Normal) Other Laboratory Tests 12/15/24 06:34 Brief Hx & Hospital Course: 59-year-old female with a history of rheumatoid arthritis hypothyroidism morbid obesity chronic current smoker history of cholecystectomy came in for abdominal pain found to have acute diverticulitis treated with Cipro and Flagyl GI consult by Dr. Rajat Sheriff. Patient complaining of pain in the right upper extremity venous ultrasound showed DVT treated with the Eliquis 10 mg p.o. b.i.d. seven days and then transmitted to 5 mg p.o. b.i.d. for three months PE ruled out. At the time of discharge patient feels better afebrile less pain in the right upper extremity vitals are stable discharged home on Eliquis which she will be on for three months and also Cipro and Flagyl for diverticulitis she will follow up with the primary Dr. DIPESH Calvin at the bedside at the time of discussion of discharge plan. Consults/Reason for consult GI Dr. Rajat Sheriff Operations or Procedures CT abdomen pelvis without contrast Venous Ultrasound right upper extremity Condition at Discharge: Fair Final Diagnosis/Problems List Acute diverticulitis: Cipro yl, GI consult by Dr. Rajat Sheriff appreciated Acute abdominal pain Acute dehydration: IV fluids Constipation Hepatic steatosis Transaminitis Hypothyroidism Rheumatoid arthritis Morbid obesity Chronic current smoking: Counseling History of cholecystectomy Partially occlusive Right brachial vein thrombosis: Cardiology Consult by appreciated, Eliquis 10 mg p.o. b.i.d. seven days then 5 mg p.o. b.i.d. for three months PE ruled out Discharge Disposition: Home Discharge Instruct/Medications Diet: Cardiac 2g Na,low cholest Activity: Light activity Follow Up/Referral: Follow up with your primary Dr Dr. Constantino in one week Medications: Cipro Flagyl Eliquis Transmitted to [facility] Scheduled Apixaban Base (Eliquis), 5 MG PO BID Apixaban Base (Eliquis), 10 MG PO BID Ciprofloxacin Hcl (Cipro), 1 TAB PO BID Levothyroxine Sodium (Levothyroxine Sodium), 150 MCG PO QAM, (Reported) Metronidazole (Flagyl), 1 TAB PO BID 39 (Time taken for discharge summary 39 minutes) Discharge Statement: "Patient was advised to return to the ER or call 911 if any headaches, dizziness, shortness of breath, chest pain, abdominal pain, bleeding, fevers, or worsening of medical condition. Patient was counseled about treatment plan, medications, possible side effects, patientverbalized understanding. All questions were answered to the best of my ability. This discharge took greater then 30 minutes in planning, reviewing documentation, counseling the patient, and discussing with other team members." ASSESSMENT ASSESSMENT Hospital Course Uneventful Assessment Acute diverticulitis: Cipro Flagyl, GI consult by Dr. Rajat Sheriff appreciated Acute abdominal pain Acute dehydration: IV fluids Constipation Hepatic steatosis Transaminitis Hypothyroidism Rheumatoid arthritis Morbid obesity Chronic current smoking: Counseling History of cholecystectomy Partially occlusive Right brachial vein thrombosis: Cardiology Consult by appreciated, Eliquis 10 mg p.o. b.i.d. seven days then 5 mg p.o. b.i.d. for three months PE ruled out Date of Service: Dec 20, 2024 Billing Provider: SUNITA CROSS MD Common Visit Codes: 80022-CWX/OBS DISCH DAY >30min SUNITA CROSS MD Dec 20, 2024 10:58
[2024-12-20 12:30] VITALS: BP 144/88; PULSE 63; RESP 19; TEMP 98.6; O2SAT 95
--- NOTE | 2024-12-20 22:00 | DVHPN2 ---
Progress Note - Dictate Date Seen: Dec 20, 2024 (Late entryTime of visit 12 noon) Medical Necessity Reason Pt with a Central, PICC or Fol: No Subjective 4 Bowel movements recorded Abdominal pain has improved Diagnosed with a extremity partially occlusive venous thrombosis started on Eliquis vital signs Vital Sign Date Time Temp Pulse Resp B/P (MAP) Pulse Ox O2 Delivery O2 Flow Rate FiO2 12/20/24 12:30 98.6 63 19 144/88 (106) 95 98.6 12/20/24 08:00 Room Air* 0 21 Total Intake and Output 12/19/24 12/19/24 12/20/24 15:00 23:00 07:00 Intake Total 300 ml 780 ml 680 ml Balance 300 ml 780 ml 680 ml objective General Appearance: Alert, Oriented X3, Cooperative, No distress HEENT: Atraumatic, Mucous membranes moist/pink Respiratory: Clear to auscultation, Normal air movement, No added sounds Cardiovascular: Regular rate, Normal S1, Normal S2, No murmurs Abdominal/ : Bilateral right and left lower quadrant tenderness present, Active bowel sounds, Soft, no distention, no tenderness Extremities: No edema, Normal pulses, No tenderness/swelling Skin: No Significant rash, except past surgical scars Neuro: Normal speech, sensorimotor deficits none Psych/Mental Status: Mental status NL, Mood NL laboratory and microbiology Laboratory Tests 12/15/24 06:34 Test 12/15/24 06:34 Range/Units Serum Glucose 126 H 74-106 mg/dL Problems(with codes): (1) Lower abdominal pain (2) UTI (urinary tract infection) (3) Diverticulitis Prognosis Plan Discharge planning is in progress Continue supportive care Outpatient follow up with GI Services for elective colonoscopy Dietary Evaluation Review Comments: CCHO-60 high fiber diet when medically feasible. Wt management upon D/C Expected Outcomes/Goals: controlled DM, improved GI health, gradul wt loss Plan discussed with: Patient CHACHO FALLON MD Dec 20, 2024 22:00
[2024-12-26] MEDS ORDERED: APIXABAN 5 MG TAB PO SCH (10:00)
== END 2024-12-20 14:00 | disposition home or self-care (01) | DRG 244 ==
LOC: ER 16:28 → OVERFLOW 23:03 → EAST 12-15 02:23
PROVIDERS: ADMIT Family Medicine; ATTEND Family Medicine
DX: K57.32 Diverticulitis of large intestine without perforation or abscess without bleeding (principal); I82.621 Acute embolism and thrombosis of deep veins of right upper extremity; K76.0 Fatty (change of) liver, not elsewhere classified; N30.00 Acute cystitis without hematuria; E03.9 Hypothyroidism, unspecified; E11.9 Type 2 diabetes mellitus without complications; E66.01 Morbid (severe) obesity due to excess calories; Z68.33 Body mass index [BMI] 33.0-33.9, adult; M06.8A Other specified rheumatoid arthritis, other specified site; E86.0 Dehydration; F17.210 Nicotine dependence, cigarettes, uncomplicated; K59.00 Constipation, unspecified; Z88.5 Allergy status to narcotic agent; Z90.49 Acquired absence of other specified parts of digestive tract; Z90.711 Acquired absence of uterus with remaining cervical stump; Z79.84 Long term (current) use of oral hypoglycemic drugs; Z79.01 Long term (current) use of anticoagulants
CPT/HCPCS: 36415; 71275; 74176; 76705; 80053; 81001; 82378; 82962; 83036; 83605; 85025; 87040; 93971; 96361; 96374; 96375; G0378; J1885; J2405; J2470; J2543; J3490

== ENCOUNTER → 2025-04-19 | Outpatient (CLI) | payer MEDICAID ==
[~2025-04-19] MED LIST: APIX5TAB PO; CIPR-173 PO; LEVO150T10 PO; METR-344 PO
[2025-04-19 13:30] LABS: Alkaline Phosphatase 82 U/L (46-116); Anion Gap 8 (5-15); BUN/Creatinine Ratio 22.8 (10.0-20.0); Blood Urea Nitrogen 13 mg/dL (9-23); Carbon Dioxide 30 mmol/L (20-31); Chloride 103 mmol/L (98-107); Lipase 48 U/L (12-53); Potassium 4.5 mmol/L (3.5-5.1); Sodium 141 mmol/L (136-145); Total Protein 7.7 g/dL (5.7-8.2)
[2025-04-19 13:31] LABS: Alanine Aminotransferase 46 U/L (7-40); Albumin 4.9 g/dL (3.2-4.8); Bilirubin, Total 1.2 mg/dL (0.2-1.0); Calcium 10.4 mg/dL (8.7-10.4); Glucose 129 mg/dL (74-106)
== END | disposition home or self-care (01) ==
LOC: LAB 12:46
PROVIDERS: ATTEND Internal Medicine
DX: K86.1 Other chronic pancreatitis (principal); K57.92 Diverticulitis of intestine, part unspecified, without perforation or abscess without bleeding; E11.9 Type 2 diabetes mellitus without complications
CPT/HCPCS: 36415; 80053; 83690